=== PATIENT | female | born 1940 | race Caucasian/White ===

== ENCOUNTER → 2016-04-29 | Outpatient (CLI) | payer BC ==
[~2016-04-29] MED LIST: CHOL1000 PO; CIPR-255 PO; CIPR1TAB10 PO; CLC100X PO; CRS/10 PO; DOCU1TAB6 PO; FISHOIL PO; LACT1CAP6 PO; METR-162 PO; OMEGCAP2 PO; OMEP20TA PO; PHEN-876 PO
--- NOTE | 2016-05-05 12:27 | CODING QUERY MEDICAL NECESSITY ---
SUPPORTING DIAGNOSIS NEEDED A supporting diagnosis is required for the test/procedure performed on this patient in order for us to be reimbursed by the patient's insurance. Please provide a supporting diagnosis for the following test/procedure listed below next to the test name along with your signature. *If there is no additional diagnosis for this patient that would support the following test/procedure please document that below next to the test/procedure. Test(s)/Procedure(s) that require a supporting diagnosis: DOS 04/29 * Bone Density Study DIAGNOSIS: Provider Signature: Date: Thank you Anna Johnson Health Information Management Once completed, please kindly fax back to [phone] For questions please call [phone]
== END | disposition home or self-care (01) ==
LOC: C.MAMM 10:16
PROVIDERS: ATTEND Family Medicine
DX: M85.80 Other specified disorders of bone density and structure, unspecified site (principal)

== ENCOUNTER 2016-08-15 07:20 | Emergency (ER) | payer BC ==
[~2016-08-15] VITALS: Ht 160 cm; Wt 71.0 kg
[~2016-08-15 07:20] MED LIST changes: -CIPR1TAB10 PO; -DOCU1TAB6 PO; -METR-162 PO; -OMEGCAP2 PO; -PHEN-876 PO
[2016-08-15 07:22] VITALS: TEMP 37.1; Ht 160 cm; Wt 71.0 kg
[2016-08-15] MEDS ORDERED: KETOROLAC TROMETHAMINE 30 MG/ML VIAL IV STA (07:37)
[2016-08-15] MEDS ORDERED: SODIUM CHLORIDE 0.9% 1000ML 1,000 ML IV STA (07:37)
[2016-08-15] MEDS ORDERED: DOCU1TAB6 PO (07:48)
[2016-08-15] MEDS ORDERED: OMEGCAP2 PO (07:48)
[2016-08-15 08:08] LABS: URINE APPEARANCE CLEAR (CLEAR); URINE COLOR DK YELLOW; URINE EPITHELIAL CELL AUTO >30 /lpf (0-5); URINE NITRITE NEG (NEG); URINE PH 5.5 (4.5-7.5); URINE SPECIFIC GRAVITY 1.021 (1.000-1.030); UROBILINOGEN NEG (NEG); ZZUR CULT IF INDIC CLEAN CATCH NO
[2016-08-15 08:12] LABS: MANUAL MICROSCOPIC REQUIRED? NO; REVIEW REQ? YES; URINE BILIRUBIN NEG (NEG)
[2016-08-15 08:13] LABS: BASO % 0.1 %; BASO ABS # 0.02 K/uL (0-0.2); COMPLETE YES; HEMATOCRIT 40.4 % (37-47); IG% 0.2 %; LYMPH % 14.5 %; LYMPH ABS # 2.06 K/uL (1.2-3.4); MEAN CELL VOLUME 92.7 fL (80-100); MEAN CORPUSCULAR HEMOGLOBIN 31.9 pg (25-34); MEAN CORPUSCULAR HGB CONC 34.4 g/dl (32-36); MEAN PLATELET VOLUME 10.8 fL (7.4-10.4); MONO % 6.2 %; PLATELET COUNT 164 K/uL (130-400); RED BLOOD COUNT 4.36 M/uL (4.2-5.4); WHITE BLOOD COUNT 14.21 K/uL (4.8-10.8)
[2016-08-15 08:22] LABS: URINE MUCUS PRESENT (NONE PRSENT)
[2016-08-15 08:40] LABS: ALKALINE PHOSPHATASE 105 U/L (45-117); ALT/SGPT 45 U/L (12-78); BLOOD UREA NITROGEN 13 mg/dl (7-18); BUN/CREATININE RATIO 18.7 (10-20); CALCIUM 9.2 mg/dl (8.5-10.1); CARBON DIOXIDE 28 mmol/L (21-32); CHLORIDE 108 mmol/L (98-107); CREATININE 0.67 mg/dl (0.60-1.20); GLUCOSE 105 mg/dl (70-99); SODIUM 141 mmol/L (136-145)
--- NOTE | 2016-08-15 08:44 | DIAGNOSTIC IMAGING REPORT ---
ABDOMEN 2VIEW W/PA CHEST RTN CLINICAL HISTORY: lower abdominal pain COMPARISON STUDY: KUB dated 02/26/2016 FINDINGS: The erect chest reveals no free air. There is no focal pulmonary consolidation. Erect and supine views the abdomen reveal multiple pelvic basin calcifications, likely representing phleboliths. There is mild fecal retention. There are no transition zones to indicate a high-grade bowel obstruction. Left upper quadrant small bowel loops are at the upper limits of normal in diameter. There is suspected bilateral nephrolithiasis. IMPRESSION: 1. Left upper quadrant small bowel loops at the upper limits of normal in diameter. 2. No conventional radiographic evidence of a high-grade bowel obstruction 3. Fecal retention 4. Probable bilateral nephrolithiasis Electronically signed by: Shon Bermudez M.D. 08/15/2016 8:42 AM Dictated Date/Time: 08/15/2016 8:40 AM
--- NOTE | 2016-08-15 09:44 | DIAGNOSTIC IMAGING REPORT ---
CT SCAN OF THE ABDOMEN AND PELVIS WITHOUT CONTRAST CLINICAL HISTORY: hematuria/lower abdominal pain COMPARISON STUDY: 08/31/2014 TECHNIQUE: CT scan of the abdomen and pelvis was performed from the lung bases to the proximal femurs. Images are reviewed in the axial, sagittal, and coronal planes. IV contrast was not administered for this examination. CT DOSE: 608.79 mGy.cm FINDINGS: Lower chest: There are minor basilar atelectatic changes. Liver: There is stable left lobe calcifications. No masses are visualized this noncontrast study. Gallbladder: Unremarkable. Spleen: Normal in size and attenuation. Pancreas: Unremarkable. Adrenal glands: Unremarkable. Kidneys: There is a 7 mm mid pole left renal calculus. Additional punctate calculi are also visualized on the left. There are 2 mid to upper pole right renal calculi the largest of which measures 4 mm. There are 2 right renal hypodensities, likely representing cysts. The largest measures 1 cm. There are right renal parapelvic cysts. No ureteral or bladder calculi are visualized. Bowel: There are no transition zones indicate bowel obstruction. The appendix appears normal. There is infiltration the perisigmoid fat, and mild sigmoid wall thickening consistent with acute sigmoid diverticulitis. There are no fluid collections to indicate a drainable abscess. Peritoneum: There is trace free fluid in the pelvis. No free air is visualized. Vasculature: The abdominal aorta is normal in course and caliber. Adenopathy: None. Pelvic viscera: The bladder, and pelvic viscera are unremarkable. Skeletal structures: No destructive osseous lesions are seen. IMPRESSION: 1. Acute sigmoid diverticulitis 2. Bilateral nephrolithiasis 3. No evidence of bowel obstruction. No evidence of free air. No evidence of acute appendicitis. Electronically signed by: Shon Bermudez M.D. 08/15/2016 9:42 AM Dictated Date/Time: 08/15/2016 9:29 AM
--- NOTE | 2016-08-15 09:47 | EMERGENCY ROOM VISIT NOTE ---
ED Visit Note First contact with patient: 07:25 I have seen and examined this patient with Sharyn Steele and generally agree with the treatment plan as discussed. Problem List Medical Problems: (1) UTI (urinary tract infection) Status: Resolved Surgical Problems: (1) H/O hemorrhoidectomy Status: Resolved Current/Historical Medications Scheduled Cholecalciferol (Vitamin D3), 1,000 INTER.UNIT PO QAM Docusate Sodium (Docusate Sodium), 100 MG PO HS Lactobacillus (Probiotic), 1 CAP PO QAM [place]-3 Fatty Acids (Fish Oil), 1 CAP PO QAM Omeprazole (Omeprazole), 1 TAB PO QAM Rosuvastatin Calcium (Crestor), 10 MG PO MWF Allergies Coded Allergies: Amoxicillin (Verified Allergy, Unknown, RASH, 08/15/16) Sulfamethoxazole w/Trimethoprim (Verified Allergy, Unknown, TOUGH TO SWALLOW, 08/15/16) PT reports, throat swelling, welts on shoulders/back and hives. Vital Signs Date Time Temp Pulse Resp B/P Pulse Ox O2 Delivery O2 Flow Rate FiO2 08/15/16 09:00 82 16 152/73 99 Room Air 08/15/16 07:22 37.1 108 18 140/56 95 Room Air Laboratory Results 08/15/16 08:00 Red Blood Count 4.36, Mean Corpuscular Volume 92.7, Mean Corpuscular Hemoglobin 31.9, Mean Corpuscular Hemoglobin Concent 34.4, Mean Platelet Volume 10.8, Neutrophils (%) (Auto) 79.0, Lymphocytes (%) (Auto) 14.5, Monocytes (%) (Auto) 6.2, Eosinophils (%) (Auto) 0.0, Basophils (%) (Auto) 0.1, Neutrophils # (Auto) 11.22, Lymphocytes # (Auto) 2.06, Monocytes # (Auto) 0.88, Eosinophils # (Auto) 0.00, Basophils # (Auto) 0.02 08/15/16 08:00 Test 08/15/16 07:53 08/15/16 08:00 Urine Color DK YELLOW Urine Appearance CLEAR (CLEAR) Urine pH 5.5 (4.5-7.5) Urine Specific [place] 1.021 (1.000-1.030) Urine Protein NEG (NEG) Urine Glucose (UA) NEG (NEG) Urine Ketones 1+ (NEG) Urine Occult Blood 3+ (NEG) Urine Nitrite NEG (NEG) Urine Bilirubin NEG (NEG) Urine Urobilinogen NEG (NEG) Urine Leukocyte Esterase TRACE (NEG) Urine WBC (Auto) 5-10 /hpf (0-5) Urine RBC (Auto) 10-30 /hpf (0-4) Urine Hyaline Casts (Auto) 10-30 /lpf (0-5) Urine Epithelial Cells (Auto) >30 /lpf (0-5) Urine Bacteria (Auto) NEG (NEG) Urine Renal Epithelial Cells /lpf (0-5) Urine Mucus PRESENT (NONE PRSENT) Urine Yeast (Auto) BUDDING (NONE PRSENT) White Blood Count 14.21 K/uL (4.8-10.8) Red Blood Count 4.36 M/uL (4.2-5.4) Hemoglobin 13.9 g/dL (12.0-16.0) Hematocrit 40.4 % (37-47) Mean Corpuscular Volume 92.7 fL (80-100) Mean Corpuscular Hemoglobin 31.9 pg (25-34) Mean Corpuscular Hemoglobin Concent 34.4 g/dl (32-36) Platelet Count 164 K/uL (130-400) Mean Platelet Volume 10.8 fL (7.4-10.4) Neutrophils (%) (Auto) 79.0 % Lymphocytes (%) (Auto) 14.5 % Monocytes (%) (Auto) 6.2 % Eosinophils (%) (Auto) 0.0 % Basophils (%) (Auto) 0.1 % Neutrophils # (Auto) 11.22 K/uL (1.4-6.5) Lymphocytes # (Auto) 2.06 K/uL (1.2-3.4) Monocytes # (Auto) 0.88 K/uL (0.11-0.59) Eosinophils # (Auto) 0.00 K/uL (0-0.5) Basophils # (Auto) 0.02 K/uL (0-0.2) RDW Standard Deviation 41.7 fL (36.4-46.3) RDW Coefficient of Variation 12.3 % (11.5-14.5) Immature Granulocyte % (Auto) 0.2 % Immature Granulocyte # (Auto) 0.03 K/uL (0.00-0.02) Anion Gap 5.0 mmol/L (3-11) Est Creatinine Clear Calc Drug Dose 69.6 ml/min Estimated GFR () 100.4 Estimated GFR (Non- 86.6 BUN/Creatinine Ratio 18.7 (10-20) Calcium Level 9.2 mg/dl (8.5-10.1) Total Bilirubin 2.4 mg/dl (0.2-1) Direct Bilirubin mg/dl (0-0.2) Aspartate Amino Transf (AST/SGOT) U/L (15-37) Alanine Aminotransferase (ALT/SGPT) 45 U/L (12-78) Alkaline Phosphatase 105 U/L (45-117) Total Protein 6.9 gm/dl (6.4-8.2) Albumin 3.5 gm/dl (3.4-5.0) Lipase 120 U/L (73-393) Medications Administered Medications (Trade) Dose Ordered Sig/Malou Route Start Time Stop Time Status Last Admin Dose Admin Sodium Chloride (Nss 1000ml) 1,000 ml @ 999 mls/hr Q1H1M STAT IV 08/15/16 07:37 08/15/16 08:37 DC 08/15/16 08:01 999 MLS/HR Ketorolac Tromethamine (Toradol Inj) 30 mg NOW STAT IV 08/15/16 07:37 08/15/16 07:39 DC 08/15/16 08:22 30 MG Departure Information Referrals Kylah Sofia DO (PCP) Patient Instructions My [facility]
[2016-08-15 10:14] VITALS: BP 147/85; PULSE 79; O2SAT 98
[2016-08-15] MEDS ORDERED: CIPR1TAB10 PO (10:29)
[2016-08-15] MEDS ORDERED: METR-162 PO (10:29)
[2016-08-15] MEDS ORDERED: METRONIDAZOLE 250 MG TAB PO STA (10:31)
[2016-08-15] MEDS ORDERED: CIPROFLOXACIN 500 MG TAB PO STA (10:31)
--- NOTE | 2016-08-15 10:31 | EMERGENCY ROOM VISIT NOTE ---
History First contact with patient: 07:25 Chief Complaint: GI ASSESSMENT Stated Complaint: FEVERISH,STOMACH PAINS,BOWEL PROBLEMS Nursing Triage Summary: Triage note: pt reports fever, lower abd cramping, nausea. pt reports hx of obstruction in the past "they gave me an enema for it and then i was fine." pt reports last bm was thursday and "i feel bloated and constipated." History of Present Illness The patient is a 76 year old female who presents to the Emergency Room with complaints of lower abdominal pains which started last evening. The patient states that from 11 PM to 3 AM she had moderate lower abdominal cramping. She felt like she had to go the bathroom. She did get up and move her bowels. She states it was not a "normal bowel movement". She states she has been taking MiraLAX and stool softeners over the past several days and has been moving her bowels daily but it is not her "normal bowel movement". The patient denies any hematochezia or melena. The patient is concerned because she states she had a "bowel obstruction" in the past and she had to receive an enema. The patient states that she has anxiety and felt very anxious after having abdominal pain last evening. She currently has mild discomfort in the lower abdomen which she rates at a 5 out of 10. The patient denies any nausea or vomiting, chest pain, shortness of breath. The patient denies any urinary symptoms of frequency, urgency, dysuria or hematuria. The patient does admit that she has a stone in one of her kidneys. She thinks it might be her life. She does admit to having some generalized lower back discomfort. Review of Systems 10 system review was performed and was negative unless stated otherwise history of present illness. Past Medical/Surgical History Medical Problems: (1) UTI (urinary tract infection) Surgical Problems: (1) H/O hemorrhoidectomy Social History Smoking Status: Never Smoker Marital Status: Housing Status: lives with significant other Current/Historical Medications Scheduled Cholecalciferol (Vitamin D3), 1,000 INTER.UNIT PO QAM Docusate Sodium (Docusate Sodium), 100 MG PO HS Lactobacillus (Probiotic), 1 CAP PO QAM [place]-3 Fatty Acids (Fish Oil), 1 CAP PO QAM Omeprazole (Omeprazole), 1 TAB PO QAM Rosuvastatin Calcium (Crestor), 10 MG PO MWF Allergies Coded Allergies: Amoxicillin (Verified Allergy, Unknown, RASH, 08/15/16) Sulfamethoxazole w/Trimethoprim (Verified Allergy, Unknown, TOUGH TO SWALLOW, 08/15/16) PT reports, throat swelling, welts on shoulders/back and hives. Physical Exam Vital Signs Date Time Temp Pulse Resp B/P Pulse Ox O2 Delivery O2 Flow Rate FiO2 08/15/16 10:14 79 18 147/85 98 Room Air 08/15/16 09:00 82 16 152/73 99 Room Air 08/15/16 07:22 37.1 108 18 140/56 95 Room Air Physical Exam GENERAL: 36-year-old female appears in no acute distress. MENTAL Status: Patient is alert and oriented 3 MOUTH: Mucosa is moist NECK: Supple, no lymphadenopathy noted. No carotid bruits noted. LUNGS: Clear auscultation without wheezes rales or rhonchi. CARDIAC: Regular rate and rhythm without murmur. Pulses is full and equal throughout. BACK: No CVA tenderness noted. ABDOMEN: Positive bowel sounds all 4 quadrants. Soft, mild tenderness palpation in the left lower quadrant otherwise nontender to palpation without organomegaly or masses. EXTREMITIES: No cyanosis or edema noted. Medical Decision & Procedures ER Provider Diagnostic Interpretation: ABDOMEN 2VIEW W/PA CHEST RTN CLINICAL HISTORY: lower abdominal pain COMPARISON STUDY: KUB dated 02/26/2016 FINDINGS: The erect chest reveals no free air. There is no focal pulmonary consolidation. Erect and supine views the abdomen reveal multiple pelvic basin calcifications, likely representing phleboliths. There is mild fecal retention. There are no transition zones to indicate a high-grade bowel obstruction. Left upper quadrant small bowel loops are at the upper limits of normal in diameter. There is suspected bilateral nephrolithiasis. IMPRESSION: 1. Left upper quadrant small bowel loops at the upper limits of normal in diameter. 2. No conventional radiographic evidence of a high-grade bowel obstruction 3. Fecal retention 4. Probable bilateral nephrolithiasis Electronically signed by: Shon Bermudez M.D. 08/15/2016 8:[address] SCAN OF THE ABDOMEN AND PELVIS WITHOUT CONTRAST CLINICAL HISTORY: hematuria/lower abdominal pain COMPARISON STUDY: 08/31/2014 TECHNIQUE: CT scan of the abdomen and pelvis was performed from the lung bases to the proximal femurs. Images are reviewed in the axial, sagittal, and coronal planes. IV contrast was not administered for this examination. CT DOSE: 608.79 mGy.cm FINDINGS: Lower chest: There are minor basilar atelectatic changes. Liver: There is stable left lobe calcifications. No masses are visualized this noncontrast study. Gallbladder: Unremarkable. Spleen: Normal in size and attenuation. Pancreas: Unremarkable. Adrenal glands: Unremarkable. Kidneys: There is a 7 mm mid pole left renal calculus. Additional punctate calculi are also visualized on the left. There are 2 mid to upper pole right renal calculi the largest of which measures 4 mm. There are 2 right renal hypodensities, likely representing cysts. The largest measures 1 cm. There are right renal parapelvic cysts. No ureteral or bladder calculi are visualized. Bowel: There are no transition zones indicate bowel obstruction. The appendix appears normal. There is infiltration the perisigmoid fat, and mild sigmoid wall thickening consistent with acute sigmoid diverticulitis. There are no fluid collections to indicate a drainable abscess. Peritoneum: There is trace free fluid in the pelvis. No free air is visualized. Vasculature: The abdominal aorta is normal in course and caliber. Adenopathy: None. Pelvic viscera: The bladder, and pelvic viscera are unremarkable. Skeletal structures: No destructive osseous lesions are seen. IMPRESSION: 1. Acute sigmoid diverticulitis 2. Bilateral nephrolithiasis 3. No evidence of bowel obstruction. No evidence of free air. No evidence of acute appendicitis. Electronically signed by: Shon Bermudez M.D. 08/15/2016 9:42 AM Laboratory Results 08/15/16 08:00 Red Blood Count 4.36, Mean Corpuscular Volume 92.7, Mean Corpuscular Hemoglobin 31.9, Mean Corpuscular Hemoglobin Concent 34.4, Mean Platelet Volume 10.8, Neutrophils (%) (Auto) 79.0, Lymphocytes (%) (Auto) 14.5, Monocytes (%) (Auto) 6.2, Eosinophils (%) (Auto) 0.0, Basophils (%) (Auto) 0.1, Neutrophils # (Auto) 11.22, Lymphocytes # (Auto) 2.06, Monocytes # (Auto) 0.88, Eosinophils # (Auto) 0.00, Basophils # (Auto) 0.02 08/15/16 08:00 Test 08/15/16 07:53 08/15/16 08:00 Urine Color DK YELLOW Urine Appearance CLEAR (CLEAR) Urine pH 5.5 (4.5-7.5) Urine Specific [place] 1.021 (1.000-1.030) Urine Protein NEG (NEG) Urine Glucose (UA) NEG (NEG) Urine Ketones 1+ (NEG) Urine Occult Blood 3+ (NEG) Urine Nitrite NEG (NEG) Urine Bilirubin NEG (NEG) Urine Urobilinogen NEG (NEG) Urine Leukocyte Esterase TRACE (NEG) Urine WBC (Auto) 5-10 /hpf (0-5) Urine RBC (Auto) 10-30 /hpf (0-4) Urine Hyaline Casts (Auto) 10-30 /lpf (0-5) Urine Epithelial Cells (Auto) >30 /lpf (0-5) Urine Bacteria (Auto) NEG (NEG) Urine Renal Epithelial Cells /lpf (0-5) Urine Mucus PRESENT (NONE PRSENT) Urine Yeast (Auto) BUDDING (NONE PRSENT) White Blood Count 14.21 K/uL (4.8-10.8) Red Blood Count 4.36 M/uL (4.2-5.4) Hemoglobin 13.9 g/dL (12.0-16.0) Hematocrit 40.4 % (37-47) Mean Corpuscular Volume 92.7 fL (80-100) Mean Corpuscular Hemoglobin 31.9 pg (25-34) Mean Corpuscular Hemoglobin Concent 34.4 g/dl (32-36) Platelet Count 164 K/uL (130-400) Mean Platelet Volume 10.8 fL (7.4-10.4) Neutrophils (%) (Auto) 79.0 % Lymphocytes (%) (Auto) 14.5 % Monocytes (%) (Auto) 6.2 % Eosinophils (%) (Auto) 0.0 % Basophils (%) (Auto) 0.1 % Neutrophils # (Auto) 11.22 K/uL (1.4-6.5) Lymphocytes # (Auto) 2.06 K/uL (1.2-3.4) Monocytes # (Auto) 0.88 K/uL (0.11-0.59) Eosinophils # (Auto) 0.00 K/uL (0-0.5) Basophils # (Auto) 0.02 K/uL (0-0.2) RDW Standard Deviation 41.7 fL (36.4-46.3) RDW Coefficient of Variation 12.3 % (11.5-14.5) Immature Granulocyte % (Auto) 0.2 % Immature Granulocyte # (Auto) 0.03 K/uL (0.00-0.02) Anion Gap 5.0 mmol/L (3-11) Est Creatinine Clear Calc Drug Dose 69.6 ml/min Estimated GFR () 100.4 Estimated GFR (Non- 86.6 BUN/Creatinine Ratio 18.7 (10-20) Calcium Level 9.2 mg/dl (8.5-10.1) Total Bilirubin 2.4 mg/dl (0.2-1) Direct Bilirubin mg/dl (0-0.2) Aspartate Amino Transf (AST/SGOT) U/L (15-37) Alanine Aminotransferase (ALT/SGPT) 45 U/L (12-78) Alkaline Phosphatase 105 U/L (45-117) Total Protein 6.9 gm/dl (6.4-8.2) Albumin 3.5 gm/dl (3.4-5.0) Lipase 120 U/L (73-393) Medications Administered Medications (Trade) Dose Ordered Sig/[place] Route Start Time Stop Time Status Last Admin Dose Admin Sodium Chloride (Nss 1000ml) 1,000 ml @ 999 mls/hr Q1H1M STAT IV 08/15/16 07:37 08/15/16 08:37 DC 08/15/16 08:01 999 MLS/HR Ketorolac Tromethamine (Toradol Inj) 30 mg NOW STAT IV 08/15/16 07:37 08/15/16 07:39 DC 08/15/16 08:22 30 MG ED Course The patient was evaluated. IV access was obtained. The patient was given 1 L normal saline wide-open. The patient was given Toradol 30 mg IV. CBC and differential, renal profile, LFTs and lipase levels were ordered. Urinalysis was ordered. Abdominal series x-ray was ordered and interpreted by the radiologist and myself as above without any acute findings. Urinalysis revealed positive blood therefore a CT stone study was ordered. Labs are reviewed. The patient's white count was slightly elevated at 14,000. Otherwise labs are unremarkable. CT the abdomen revealed no evidence of ureteral calculi but did show diverticulitis of the sigmoid colon. The patient was independently evaluated by Dr. Lauren who agreed with treatment plan. The patient was informed of the findings and was reevaluated on several occasions while in the ER. The patient was given 1 dose of Cipro and Flagyl while in the emergency room. The patient was discharged home in stable condition. Medical Decision Differential diagnoses include reflux, gastritis, gastroenteritis, pancreatitis , cholelithiasis, cholecystitis, appendicitis, mesenteric ischemia, pyelonephritis, urinary tract infection, renal colic, diverticulitis, shingles, bowel obstruction, intussusception, hernia, ovarian torsion, ruptured ovarian cyst, Impression Primary Impression: Diverticulitis Departure Information Dispostion Home / Self-Care Condition GOOD Prescriptions Ciprofloxacin Hcl (CIPRO) 500 Mg Tab 500 MG PO BID for 10 Days, #20 TAB Prov: Sharyn Steele PA-C 08/15/16 Metronidazole (FLAGYL) 500 Mg Tab 500 MG PO BID for 10 Days, #20 TAB Prov: Sharyn Steele PA-C 08/15/16 Referrals Kylah Sofia DO (PCP) Forms HOME CARE DOCUMENTATION FORM, IMPORTANT VISIT INFORMATION Patient Instructions Diet Clear Liquid Dc, ED Diverticulitis, [facility] Additional Instructions Clear liquid diet for 2 days. Then advance diet slowly as tolerated. Avoid nuts and seeds until symptoms have improved. Take Cipro and Flagyl as prescribed. Tylenol and/or ibuprofen as needed for pain. Follow-up with your family doctor or gastroenterology early next week. If symptoms worsen in the interim, return to ER. Problem Qualifiers Primary Impression: Diverticulitis Diverticulitis site: large intestine Diverticulitis bleeding: without bleeding Diverticulitis complication: without perforation or abscess Qualified Codes: K57.32 - Diverticulitis of large intestine without perforation or abscess without bleeding
== END 2016-08-15 11:05 | disposition home or self-care (01) ==
LOC: C.EDB 07:21
DX: K57.32 Diverticulitis of large intestine without perforation or abscess without bleeding (principal); N20.0 Calculus of kidney; Z87.440 Personal history of urinary (tract) infections; Z79.899 Other long term (current) drug therapy

== ENCOUNTER → 2016-09-30 | Outpatient (CLI) | payer BC ==
[~2016-09-30] MED LIST changes: -CIPR-255 PO; -CLC100X PO; +DOCU1TAB6 PO; -FISHOIL PO; +OMEGCAP2 PO
[2016-09-30 11:26] LABS: CHOLESTEROL/HDL RATIO 2.5
== END | disposition home or self-care (01) ==
LOC: C.LABBC 07:37
PROVIDERS: ATTEND Family Medicine
DX: E78.00 Pure hypercholesterolemia, unspecified (principal)

== ENCOUNTER → 2017-03-05 | Outpatient (CLI) | payer BC ==
--- NOTE | 2017-03-05 13:04 | DIAGNOSTIC IMAGING REPORT ---
KUB HISTORY: Follow-up study in a patient with left-sided kidney stone N20.0 [id number] COMPARISON: Acute abdominal series radiographs 08/15/2016. FINDINGS: The bowel gas pattern is non-obstructive. There is no organomegaly. Bilateral renal shadows are obscured by bowel gas. Moderate volume of formed colonic stool is noted throughout. Multiple phleboliths of the pelvis redemonstrated. Discrete nephrolithiasis or ureteral calculi are not definitely seen. No pneumoperitoneum or pneumatosis. No fracture. There are degenerative changes of the lumbar spine, hips and pelvis. IMPRESSION: 1. Bilateral renal shadows are obscured by overlying colonic stool and bowel gas. No definite nephrolithiasis or ureteral calculi identified. 2. Nonobstructive bowel gas pattern. Electronically signed by: Vince Perez M.D. 03/05/2017 1:02 PM Dictated Date/Time: 03/05/2017 12:59 PM
== END | disposition home or self-care (01) ==
LOC: C.RAD 12:11
PROVIDERS: ATTEND Urology
DX: N20.0 Calculus of kidney (principal)

== ENCOUNTER → 2017-03-24 | Outpatient (CLI) | payer BC ==
--- NOTE | 2017-03-24 15:08 | MAMMOGRAPHY REPORT ---
BILATERAL DIGITAL SCREENING MAMMOGRAM WITH CAD: 03/24/2017 CLINICAL HISTORY: Routine screening. Patient has no complaints. TECHNIQUE: Bilateral CC and MLO views were obtained. Current study was also evaluated with a Comput er Aided Detection (CAD) system. COMPARISON: Comparison is made to exams dated: 03/18/2016 mammogram, 03/13/2015 mammogram, 4 mammogram, 03/02/2013 mammogram, 03/01/2012 mammogram, and 02/27/2011 mammogram - [facility]. BREAST COMPOSITION: There are scattered areas of fibroglandular density in both breasts. FINDINGS: There is stable focal asymmetry in the upper outer posterior right breast. Mild vascular calcifications in the breasts. Stable groupings of punctate microcalcifications in the left breast a re unchanged dating back to at least 10/25/2007, therefore likely benign. No new suspicious mass, ar chitectural distortion or cluster of microcalcifications is seen. IMPRESSION: ACR BI-RADS CATEGORY 2: BENIGN There is no mammographic evidence of malignancy. A 1 year screening mammogram is recommended. The pa tient will receive written notification of the results. Approximately 10% of breast cancers are not detected with mammography. A negative mammographic report should not delay biopsy if a clinically suggestive mass is present. Mandy Sumner M.D. ay/:03/24/2017 11:17:55 Seater Grinder: Tamar DURAN)(Hannah)(BD), [facility] letter sent: Normal 1/2 BI-RADS Code: ACR BI-RADS Category 2: Benign
== END | disposition home or self-care (01) ==
LOC: C.MAMM 10:26
PROVIDERS: ATTEND Family Medicine
DX: Z12.31 Encounter for screening mammogram for malignant neoplasm of breast (principal)

== ENCOUNTER → 2017-03-31 | Outpatient (CLI) | payer BC ==
[2017-03-31 11:23] LABS: CHOLESTEROL/HDL RATIO 2.1
== END | disposition home or self-care (01) ==
LOC: C.LABBC 08:10
PROVIDERS: ATTEND Family Medicine
DX: E78.00 Pure hypercholesterolemia, unspecified (principal)

== ENCOUNTER 2017-12-22 20:45 | Emergency (ER) | payer BC ==
[~2017-12-22] VITALS: Ht 157.5 cm; Wt 69.9 kg
[~2017-12-22 20:45] MED LIST changes: -LACT1CAP6 PO
[2017-12-22 20:52] VITALS: TEMP 36.8; Ht 157.5 cm; Wt 69.9 kg
--- NOTE | 2017-12-22 21:23 | EMERGENCY ROOM VISIT NOTE ---
ED Visit Note First contact with patient: 20:55 Staff note: I have reviewed the Patients chart and have discussed this case with my PA. I generally agree with the ED note and findings.
[2017-12-22] MEDS ORDERED: PHENAZOPYRIDINE HCL 200 MG TAB PO STA (21:26)
--- NOTE | 2017-12-22 21:26 | EMERGENCY ROOM VISIT NOTE ---
ED Visit Note First contact with patient: 20:55 CHIEF COMPLAINT: Dysuria HISTORY OF PRESENT ILLNESS: This 77-year-old female presents to ER with chief complaint of dysuria that started a few hours ago. The patient also admits to pressure over the bladder. The patient states that she is followed by urology for kidney stones. She states this does not feel like a kidney stone. She does not have any flank pain or back pain. The patient denies any nausea or vomiting. The patient denies any hematuria. REVIEW OF SYSTEMS: : 6 system review was performed and was negative unless stated otherwise in history of present illness. PMH: See chronic problem list. SOCIAL HISTORY: Patient denies tobacco use. PHYSICAL EXAM: Vital Signs: Were reviewed reviewed Nurse's notes. GENERAL: 77- year-old white female appears in no acute distress. MENTAL Status: Alert and oriented 3. LUNGS: Clear to auscultation without wheezes rales or rhonchi. CARDIAC: Regular rate and rhythm without murmur. ABDOMEN: The abdomen is soft, mildly tender in the suprapubic area, but no masses or organs are felt. There is no CVA tenderness. The skin is clear and the patient is alert and appears well. EMERGENCY DEPARTMENT COURSE: Urine dip revealed positive leukocytes and positive blood. The patient was given Macrobid 100 mg p.o. while in the ER and Pyridium 200 mg p.o. The patient was independently evaluated by Dr. Tejada who agrees with treatment plan. The patient was discharged home in stable condition. DIAGNOSIS: UTI - Cystitis DISCHARGE INSTRUCTIONS & TREATMENT: High fluid intake. Take Macrobid as prescribed. Take Pyridium as prescribed. This may turn your urine orange do not be alarmed.. Call in 36 hours if you are not improved to check culture results, and the appropriateness of the antibiotic therapy. Problem List Medical Problems: (1) UTI (urinary tract infection) Status: Resolved Surgical Problems: (1) H/O hemorrhoidectomy Status: Resolved Current/Historical Medications Scheduled Cholecalciferol (Vitamin D3), 1,000 INTER.UNIT PO QAM Docusate Sodium (Docusate Sodium), 100 MG PO HS [facility]-3 Fatty Acids (Fish Oil), 1 CAP PO QAM Rosuvastatin Calcium (Crestor), 10 MG PO MWF Scheduled PRN Omeprazole (Omeprazole), 1 TAB PO QAM PRN for Indigestion Allergies Coded Allergies: Amoxicillin (Verified Allergy, Unknown, RASH, 10/15/17) Sulfamethoxazole w/Trimethoprim (Verified Allergy, Unknown, TOUGH TO SWALLOW, 10/15/17) PT reports, throat swelling, welts on shoulders/back and hives. Vital Signs Date Time Temp Pulse Resp B/P (MAP) Pulse Ox O2 Delivery O2 Flow Rate FiO2 12/22/17 20:52 36.8 76 18 177/72 98 Room Air Departure Information Referrals Sarahy Maguire MD (PCP) Patient Instructions [facility]
[2017-12-22] MEDS ORDERED: NITR-5 PO (21:29)
[2017-12-22] MEDS ORDERED: NITROFURANTOIN MONOHYDRATE 100 MG CAP PO ONE (21:30)
[2017-12-22] MEDS ORDERED: PHENAZOPYRIDINE HOME PACK 200 MG VIAL PO ONE (21:30)
[2017-12-22 22:06] VITALS: BP 175/126; PULSE 80; O2SAT 98
--- NOTE | 2017-12-24 13:25 | Pharmacy Progress Note ---
ED Pharmacist Culture FollowUp Date of Service: Dec 24, 2017. Patient was sent home with a prescription for Macrobid 100 mg BID x 7 days, which should cover the E. coli growing from the patient's urine culture.
== END 2017-12-22 21:45 | disposition home or self-care (01) ==
LOC: C.EDB 20:47 → C.EDD 21:45
DX: N39.0 Urinary tract infection, site not specified (principal); N30.90 Cystitis, unspecified without hematuria; Z88.1 Allergy status to other antibiotic agents; Z88.2 Allergy status to sulfonamides